=== PATIENT | female | born 1995 | race Caucasian/White ===

== ENCOUNTER 2019-11-06 03:49 | Emergency (ER) | payer MEDICAID ==
[~2019-11-06] VITALS: Ht 160 cm; Wt 58.1 kg
[2019-11-06 03:54] VITALS: Ht 160 cm; Wt 58.1 kg
[2019-11-06] MEDS ORDERED: ZANAFLEX4 MG PO (03:55)
[2019-11-06 05:01] LABS: BILIRUBIN NEGATIVE (NEGATIVE); HCG URINE NEGATIVE (NEGATIVE); KETONE NEGATIVE (NEGATIVE); NITRITE NEGATIVE (NEGATIVE); UROBILINOGEN NORMAL mg/dL (< 2)
[2019-11-06 05:02] LABS: BACTERIA FEW HPF (NONE SEEN); EPITHELIAL CELLS 0-5 /hpf (0-5); WHITE CELLS - URINE 0-5 HPF (0-4)
[2019-11-06] MEDS ORDERED: ULTRAM50 MG PO (06:26)
[2019-11-06] MEDS ORDERED: NAPROSYN500 MG PO (06:26)
[2019-11-06 07:00] VITALS: BP 103/60
== END 2019-11-06 07:00 | disposition home or self-care (01) ==
LOC: D.ER 03:49
PROVIDERS: Family Medicine
DX: S39.012A Strain of muscle, fascia and tendon of lower back, initial encounter (principal); X58.XXXA Exposure to other specified factors, initial encounter